=== PATIENT | female | born 2000 | race Caucasian/White ===

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

== ENCOUNTER 2024-06-16 15:22 | Outpatient (CLI) | payer SELFPAY ==
[~2024-06-16] VITALS: Ht 175.3 cm; Wt 108.9 kg
--- NOTE | 2024-06-16 16:12 | NUR ---
1530 PATIENT HERE FROM HOME WITH COMPLAINTS NOT FEELING BABIES MOVE. FHT TWIN A RIGHT LOWER QUAD. FHT 145 AND BABY VERY ACTIVE. TWIN B LEFT UPPER QUAD FHT 135 BABY VERY ACTIVE. FULL ASSESSMENT COMPLETED. PATIENT FEELS BABIES MOVE AT THIOS TIME. DR MAY CALLED AND ORDERS TO DISMISS TO HOME AFTER A 20 MIN REACTIVE STRIP. 1555 REACTIVE STRIP TIMES 2. BABIES VERY ACTIVE AND MOM IS FEELING MOVEMENT. ALL DISCHARGE INSTRUCTIONS GIVEN TO PATIETN AND MOTHER AND DISMISSED TO HOME AT THIS TIME.
== END 2024-06-16 15:55 | disposition home or self-care (01) ==
LOC: LDRO 15:22
DX: O36.8130 Decreased fetal movements, third trimester, not applicable or unspecified (principal); O30.003 Twin pregnancy, unspecified number of placenta and unspecified number of amniotic sacs, third trimester; Z3A.31 31 weeks gestation of pregnancy

== ENCOUNTER 2024-07-18 20:39 | Inpatient (IN) | payer BC ==
[2024-07-18] VITALS (11 sets, daily range): BP systolic 141–169; BP diastolic 93–107; PULSE 61–87; TEMP 99.3
[~2024-07-18] VITALS: Ht 175.3 cm; Wt 126.4 kg
[~2024-07-18 20:39] MED LIST changes: +PRENATAL TABLET PO
--- NOTE | 2024-07-18 20:50 | NUR ---
PT ARRIVED WITH COMPLAINT OF HIGH BLOOD PRESSURES AT HOME. WAS TOLD BY HER MD TO CHECK THEM AT HOME PERIODICALLY. SHE GOT HIGH READINGS THAT DID NOT COME DOWN, SO SHE CAME TO BE EVALUATED. DENIES ANY HEADACHES OR VISUAL CHANGES TODAY. NO NEW SYMPTOMS. ON ASSESSMENT, NORMAL DTR'S, NO CLONUS. TRACE EDEMA TO BILAT LOWER EXT. REPORTS NO VAGINAL BLEEDING OR LOF. MILD OCCASIONAL CRAMPING. FEEL BOTH BABIES MOVING NORMALLY.
[2024-07-18] MEDS ORDERED: LR 1,000 ML IV PRN (21:15)
[2024-07-18 22:26] LABS: COLLECTION METHOD CLEAN CATCH
[2024-07-18 22:30] LABS: BASO # 0.1 K/mm3 (0.0-0.2); BASO % 0.5 % (0.0-2.0); EOS # 0.1 K/mm3 (0.0-0.7); EOS % 1.1 % (0.0-4.0); GRAN # 9.1 K/mm3 (1.4-6.5); GRAN % 70.5 % (42.2-75.2); HEMOGLOBIN 11.6 g/dl (12.5-16.0); LYMPH # 2.6 K/mm3 (1.2-3.4); LYMPH % 19.9 % (20.0-51.0); MEAN CELL VOLUME 84 fl (80.0-100.0); MEAN CORPUSCULAR HEMOGLOBIN 29 pg (27-31); MEAN CORPUSCULAR HGB CONC 35 g/dl (33.0-37.0); MEAN PLATELET VOLUME 12.4 fl (7.4-10.4); MONO % 7.4 % (1.7-9.3); PLATELET COUNT 166 K/mm3 (130-400); RED BLOOD COUNT 3.97 M/mm3 (4.10-5.30); REDCELL DISTRIBUTION WIDTH-CV 13.2 % (11.5-14.5)
[2024-07-18 22:31] LABS: HEMATOCRIT 33.3 % (37.0-47.0)
[2024-07-18 22:33] LABS: URINE APPEARANCE CLOUDY (CLEAR/HAZY); URINE BLOOD NEGATIVE (NEGATIVE); URINE COLOR YELLOW (YELLOW); URINE GLUCOSE NEGATIVE (NEGATIVE); URINE KETONE NEGATIVE (NEGATIVE); URINE NITRATE NEGATIVE (NEGATIVE); URINE PROTEIN(semi-quant) 1+ (NEGATIVE); URINE UROBILINOGEN 0.2 E.U/dL (0.2-1.0)
[2024-07-18 22:47] LABS: ALBUMIN 2.4 g/dL (3.5-5.0); BILIRUBIN,TOTAL 0.3 mg/dL (0.2-1.2); CALCIUM 9.2 mg/dL (8.4-10.2); CREATININE, serum 0.8 mg/dL (0.57-1.11); POTASSIUM 3.9 mEq/L (3.5-4.5); TOTAL PROTEIN 5.8 g/dl (6.2-8.1)
--- NOTE | 2024-07-18 23:07 | NUR ---
MD AT BEDSIDE. ULTRASOUND. 2320-TO BR TO VOID. PT VOMITED. STATES SHE HAS NOT BEEN NAUSEATED UNTIL JUST NOW. FEELS BETTER BUT WILL CALL MD FOR BELLO.
[2024-07-18] MEDS ORDERED: hydrALAZINE 20 MG/ML 1 ML VIAL IV PRN (23:45)
[2024-07-18] MEDS ORDERED: Magnesium Sulfate 4% 50 ML IV PRN (23:45)
[2024-07-18] MEDS ORDERED: LR & Oxytocin 500 ML IV SCH (23:45)
[2024-07-18] MEDS ORDERED: LR 1,000 ML IV SCH ×2 (23:45)
[2024-07-18] MEDS ORDERED: Calcium Gluconate 1,000 MG (4.65 mEq)/10 ML VIAL IV PRN (23:45)
[2024-07-19] VITALS (73 sets, daily range): BP systolic 15–177; BP diastolic 63–118; PULSE 62–109; TEMP 98.1–100.9
[2024-07-19] MEDS ORDERED: Magnesium Sulfate 4% 500 ML IV SCH
[2024-07-19] MEDS ORDERED: Calcium Gluconate 1,000 MG (4.65 mEq)/10 ML VIAL IV PRN
--- NOTE | 2024-07-19 00:15 | NUR ---
IV STARTED IN PER Penny SÁNCHEZ, RN AFTER 2 ATTEMPTS AND 2 ATTEMPTS PER THIS RN. 0040-2ND IV PLACED PER ALEXANDER CARNEY RN IN RFA
[2024-07-19] MEDS ORDERED: Ondansetron 4 MG/2 ML VIAL IV PRN ×2 (00:30→03:30)
--- NOTE | 2024-07-19 00:55 | NUR ---
MAGNESIUM SULFATE STARTED AT 50ML/HR PER ORDER IN LFA. LR RUNNING WITH IT 25ML/HR.
[2024-07-19] MEDS ORDERED: Naloxone 0.4 MG/ML VIAL IV PRN ×2 (03:30→16:30)
[2024-07-19] MEDS ORDERED: diphenhydrAMINE 25 MG CAP PO PRN (03:30)
[2024-07-19] MEDS ORDERED: diphenhydrAMINE 50 MG/ML 1 ML VIAL IV PRN (03:30)
[2024-07-19] MEDS ORDERED: ePHEDrine 50 MG/10 ML VIAL IV PRN (03:30)
--- NOTE | 2024-07-19 03:55 | NUR ---
PT HAS MOVED TO HER RT SIDE AND IS COMFORTABLE. NOT FEELING CTX. SLEEPING OFF AND ON. DIFFICULT TO MONITOR BABY A DUE TO PT POSITION. ADJUSTING EFM
--- NOTE | 2024-07-19 04:10 | NUR ---
CONTINUING TO ADJUST EFM TO BETTER MONITOR BABY A
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
--- NOTE | 2024-07-19 05:55 | NUR ---
DIFFICULT TRACING OF CONTRACTIONS DUE TO PT POSITION. PT STILL NOT FEELING CTX. READJUSTED TOCO
--- NOTE | 2024-07-19 06:45 | NUR ---
REPORT RC'D AT 0630 AT PT BEDSIDE, ASSUMED CARE OF PT, INTRODUCED PT AND FAMILY TO THIS NURSE AND PLAN OF CARE, ASSESSMENT COMPLETED, VSS, PT ONLY FEELING OCCAS BACK PAIN AT THIS TIME, DENIES HEADACHE OR VISUAL CHANGES, VSS, PITOCIN INCREASED TO 14MU/MIN PER PUMP AT 0645.
--- NOTE | 2024-07-19 07:00 | NUR ---
DENIES CTX OR HEADACHES, HAVING BACK PAIN, REPOSTIONED WITH PILLOWS.
--- NOTE | 2024-07-19 07:40 | NUR ---
PT REPORTS FEELING SOMETHING "WET BETWEEN HER LEGS" FEELING BACK PAIN WITH CTX, SVE DONE, COMFIRMED SROM WITH CLEAR FLUID, SVE 3CM/80/-2 STATION, PT REPOSTIONED WEDGED RIGHT FOLLOWING EXAM, HUNTER ARE DONE, STARTING TO BREATH AND HAVE DISCOMFORT WITH CTX, WOULD LIKE EPIDURAL, THIS NURSE WILL CALL PHYSICIAN NOW.
--- NOTE | 2024-07-19 08:19 | NUR ---
EVANGELINA CARLISLE-ASSIGNMENT EDITOR AT BEDSIDE, DISCUSSES EPIODURAL PLACEMENT, CONSENT SIGNED, IVF BOLUS INFUSING PER ASSIGNMENT EDITOR ORDERS 500CC PER PUMP NOW, PT SITTING UP ON SIDE OF BED, EPIDURAL PLACED BY ASSIGNMENT EDITOR, SINGLE SHOT AT 0819, PULSE 99,. SA02 99%. UNABLE TO MONITOR BABIES AT THIS TIME DUE TO PT SITTING UP, PT TOLERATES PROCEDURE WELL, VS STABLE, SEE ANESTHESIA RECORD. REPOSITIONED FOLLOWING EPIDURAL WEDGED LEFT AT 0825, BABY A FHR 120'S WITH GOOD VARIABLITLY, BABY B ALSO 120'S WITH GOOD VARIABILITY, AT 0830, CTX PAIN GETTING MUCH BETTER PER PT REPORT.
[2024-07-19] MEDS ORDERED: ROPivacaine PF 0.2% 200 ML IV ONE (08:24)
--- NOTE | 2024-07-19 08:45 | NUR ---
COMFORTABLE ON LEFT SIDE, UNABLE TO FEEL CTX,
--- NOTE | 2024-07-19 09:20 | NUR ---
AT 0920, ON UNIT, VIEWS STRIP, PT STARTING TO FEEL PRESSURE IN BOTTOM WITH CTX, IN ROOM AT 0922, DISCUSSES PLAN OF CARE WITH PT, ANSWERS QUESTIONS, SVE DONE PT 4-5CM/90%, -1 STATION, NO NEW ORDERS, PT REPOSITIONED UP ON RIGHT SIDE WITH LEG IN STIRRUP.
--- NOTE | 2024-07-19 09:30 | NUR ---
PT REPOSITIONED UP HIGH ON RIGHT SIDE USING STIRRUP FOR LEFT LEG FOLLOWING EXAM, FHR MONITORS REPOSTIIONED TO GET BABES HR.
--- NOTE | 2024-07-19 09:42 | NUR ---
DTR 2+. DENIES C/O VISION CHANGES OR HEADACHE, ANTON EMPITED OF 45CC CLEAR YELLOW URINE.
--- NOTE | 2024-07-19 10:00 | NUR ---
BAG 1 MAG SULFATE INFUSED, BAG 2 HUNG PER ORDER AT 2G 50CC/HR, BETH CHARGE IN ROOM, CO-SIGN FOR MAG. PT NOT FEELING CTX, DENIES HEADACHE, COMFORTABLE WITH EPIDURAL.
--- NOTE | 2024-07-19 10:15 | NUR ---
SLEEPING WITH EPIDURAL
--- NOTE | 2024-07-19 11:15 | NUR ---
FEELING MORE PRESSURE WITH CTX, SVE 6CM/100/0 STATION, BLOODY SHOW, MORE UNCOMFORTABLE WITH CTX, POSITIONED UP ON LEFT SIDE, WITH PILLOWS AND BLANKETS, FHR REPOSTIIONED, WILL SEE IF THAT HELPS WITH CTX PAIN.
--- NOTE | 2024-07-19 11:45 | NUR ---
HAVING TO BREATH THROUGH CTX BUT LEGS ALSO FEELING NUMB AND HEAVY, LEFT MORE THAN RIGHT, EPIDURAL BOLUS BUTTON PRESSED BY PT DUE TO TENSE/HAVING TO BRETAH THROUGH CTX.
--- NOTE | 2024-07-19 12:00 | NUR ---
PITOCIN DECREASED TO 16MU/MIN DUE TO CTX COMING EVERY 1-2 MINUTES.
--- NOTE | 2024-07-19 12:15 | NUR ---
SLEEPING/SNORING ON LEFT SIDE
--- NOTE | 2024-07-19 12:30 | NUR ---
CONTINUES TO SLEEP/SNORE ON LEFT SIDE, AND SUPPORT PERSON ALSO IN RM.
--- NOTE | 2024-07-19 12:45 | NUR ---
ON UNIT, UPDATED OUTPUT HAS BEEN LESS THAN 30CC/HR, MAG LEVEL ORDERED, LAB NOTIFIED, PITOCIN INCREASED TO 18MU DUE TO CTX SPACING OUT, PT CONTINUES TO SLEEP ON LEFT SIDE.
--- NOTE | 2024-07-19 13:15 | NUR ---
IN ROOM AT 1308, VIEWS STRIP, SVE DONE, PT COMPLETE, +1 STATION, WILL NOTIFY CHARGE NURSE, ANABEL, PARK RANGER TO SET UP FOR DELIVERY IN OR.
--- NOTE | 2024-07-19 13:30 | NUR ---
AT 1330, SLOANE CRUZ'D FOR PT TO PUSH IN OR, 10CC SALINE WITHRAWN, HUNTER CARE DONE, PT TOLERTED WELL, AT 1335 EFM OFF, PT MOVED TO OR FOR DELIVERY OF TWINS WITH THIS NURSE, SAMMIE ORTIZ CHARGE NURSE AND ANABEL-RADHA.
--- NOTE | 2024-07-19 13:45 | NUR ---
AT 1343 TO OR PER BED, AWAKE AND COMFORTABLE WITH CTX, TRANSFERRED OVER TO OR TABLE WITH ROLLER BOARD BY THIS NURSE, MARTHA AND SAMMIE ORTIZ-CHARGE NURSE, , AND FROYLAN, FHR MONITOR ON, NOTED DATE AT TIME TO BE OCT 20, 2023 AT 0335, CURRENT TIME OF 1343 NOTED ON STRIP, ALSO AWARE OF DISCREPANCY OF TIME ON FHR OR MONITOR. LAB CALLED WITH PT MAG LEVEL OF 9.9, MAG DECREASED TO 1G PER PUMP PER VERBAL ORDER OF AT 1344. PT POSITIONED UP IN STIRRUPS AND INSTURCTED ON PUSHING WITH CTX, [facility]-RN NURSERY NURSE ALSO IN ROOM FOR DELIVERY OF BABIES. SEE ANESTHESIA RECORD OF VS DURING TIME IN OR BEGINNING AT 1345.
--- NOTE | 2024-07-19 14:00 | NUR ---
AT 1351 PT INSTRUCTED ON PUSHING WITH CTX, GUIDES PUSHING WITH EXAM, B.CRINGAN- CHARGE NURSE HOLDING LEFT LEG WHILE THIS NURSE HELPS WIHT RIGHT LEG AND INSTRUCTS PT ON PUSHING, FOB AT HEAD OF BED ALSO OFFERING SUPPORT. AT 1353, PITOCIN INCREASED TO 20MU PER ORDER OF DR. MAY, R/T PT CTX NOT FEELING FIRM WITH PUSHING, PT PUSHING WITH GOOD EFFORT. AT 1401, DIFFICULTY TRACING BABY B, DR. BROWN PERFOMS BEDSIDE ULTRASOUND TO FIND BABY HR, FHR 120'S WITH GOOD VARIABILITY. SEE ANESTHESIA RECORD FOR PT VS.
--- NOTE | 2024-07-19 14:15 | NUR ---
PT CONTINUES TO PUSH WITH GOOD EFFORT WITH CTX.
--- NOTE | 2024-07-19 14:30 | NUR ---
CONTINUES TO PUSH WIHT PT, PITOCIN INCREASED TO 22MU/MIN PER ORDER AT 1427 R/T CTX SPACING TO 3 MIN APART AND FUNDUS PALPATED MODERATE WITH CTX.
--- NOTE | 2024-07-19 14:52 | NUR ---
EMPTIES BLADDER WITH RED RICHARD AT 1446, PT VERBALIZES SHE WOULD LIKE VACUUM ASSISTED DELIVERY R/T MATERNAL EXHAUSTION, VACUUM ON TO ASSIST WITH DELIVERY AT 1449 BY , PT PUSHING WELL WITH CTX, VACUUM ASSISTED DELIVERY AT 1452 OF VIABLE MALE WITH NUCHAL CORD X 1 WITH 8/9/9 APGARS BY WITH ALSO IN OR OVER SECOND DEGREE LACERATION, VSS, SEE ANESTHESIA RECORD.
--- NOTE | 2024-07-19 15:00 | NUR ---
SEE ANESTHESIA RECORD FOR MATERNAL VSS, SEE LABOR AND DELIVERY SUMMARY NOTE, PT PUSHING WELL AT [address]GOODPASTURE HUYNH GUIDED PUSHING, PT IS FATIGUED, OFFERED ICE CHIPS AND COLD WASH CLOTH FOR HEAD BUT PUSHING WITH GOOD EFFORT, AT HEAD OF BED OFFERING SUPPORT.
--- NOTE | 2024-07-19 15:15 | NUR ---
PT PUSHING WITH CTX AT 1505 FOLLOWING DELIVERY OF BABY A, CONFIRMS BABE VTX, FHR 100'S-120'S WITH GOOD VARIBALITY, FHR DECREASED TO 90'S 100'S AT CTX END, RECOMMENDS VACUUM ASSIST DELIVERY AND PT AGREES WITH THIS PLAN, VACUUM ON AT 1513 BY , ALSO IN OR FOR DELIVERY, PT PUSHING WELL WITH CTX, VACUUM ASSISTED DELIVERY FOLLOWING 2 PUSHES OF VIABLE M/C WITH 8-9-9 APGARS OVER SECOND DEGREE LACERATION AT 1515, PITOCIN OFF, BABE TO WARMER WITH NURSERY NURSE- JEAN RUSSELL-RN.
--- NOTE | 2024-07-19 15:30 | NUR ---
SPONTANEOUS PLACENTA AT 1522, PITOCIN INFUSING AT 333MU/MIN PER PUMP, FINISHES REPAIR OF SECOND DEGREE LACERATION, BABES ON MOMS CHEST X 2 WITH POSITIVE BONDING, DAD AT HEAD OF BED, CYTOTEC AT 1536 RECTAL BY FOLLOWING REPAIR, UTERUS MASSAGED FIRM.
[2024-07-19] MEDS ORDERED: miSOPROStol 200 MCG TAB PO ONE (15:36)
--- NOTE | 2024-07-19 16:00 | NUR ---
ANTON PLACED IN OR AT 1550, 10CC BALLOON INFLATED, AND TO DEPENDANT DRAINAGE, FUNDUS MASSSAGED FIRM, PT MOVED OVER TO LDR BED FROM OR TABLE WITH ASSIST, FREE FLOW BLEEDING ON PAD WITH MOVE, MASSAGED FIRM, ABLE TO MOVE WELL, DENIES PAIN, WARM BLANKET FOR SHAKES, TO LDR#6 PER BED BY THIS NURSE, ANABEL AND SAMMIE SANCHEZ, RECOVERY VS INITATED IN ROOM AT 1600, MAG LEVEL ORDERED BY , ICE WATER GIVEN, SCD'S ON, IV'S PATENT AND INFUSING. DAD IN NURSERY WITH BABES AT THIS TIME.
[2024-07-19] MEDS ORDERED: Acetaminophen 500 MG TAB PO SCH (16:30)
[2024-07-19] MEDS ORDERED: Phenylephrine/Mineral Oil/Petrolatum 57 GM TUBE RC PRN (16:30)
[2024-07-19] MEDS ORDERED: Witch Hazel 50% Pads Bulk TUB TP PRN (16:30)
[2024-07-19] MEDS ORDERED: Ibuprofen 800 MG TAB PO SCH (16:30)
[2024-07-19] MEDS ORDERED: Mag/Al Hydrox/Simeth Susp 30 ML CUP PO PRN (16:30)
[2024-07-19] MEDS ORDERED: Measles/Mumps/Rubella Virus Vaccine Live w Diluent 0.5 ML VIAL SQ SCH (16:30)
[2024-07-19] MEDS ORDERED: Magnes Hydrox (MOM) 80 MG/ML 30 ML CUP PO PRN (16:30)
[2024-07-19] MEDS ORDERED: Loratadine 10 MG TAB PO PRN (16:30)
--- NOTE | 2024-07-19 16:30 | NUR ---
MOM HOLDS BABES SKIN TO SKIN, FAMILY VISITING, LIMITED TO 2 VISITORS, DENIES PAIN, VSS.
[2024-07-19] MEDS ORDERED: Sennosides/Docusate 8.6-50 MG TAB PO SCH (17:00)
--- NOTE | 2024-07-19 17:00 | NUR ---
BOOGIE RUBIN TO [facility] FOR TO ASSESS, AT 1710 IN AT BEDSIDE TALKING WITH PT AND FAMILY REGARDING PLAN OF CARE, QUESTIONS ADDRESSED.
--- NOTE | 2024-07-19 18:00 | NUR ---
at 1750, vss, pad changed and rachel care done, 140cc of blood weighed on pad, free flow noted while changing pad, uterus massaged, no clots noted, more bleeding noted on fresh pad. B.CRingan-charge nurse called to assess fundus, fundus also massaged with no clots, but free flow when pt moves bottom. Pt requests warm blanket, given, orat temp at this time is 100.9. Called -see physician notification note, updated on temp 100.9, no orders at this time.
--- NOTE | 2024-07-19 18:05 | NUR ---
at 1807, MARTHA AND ON UNIT, WILL PLAN TO TAKE PT BACK TO OR TO ASSESS CAUSE OF BLEEDING, PT AND FAMILY UPDATED ON THIS PLAN. AT 1815, AT BEDSIDE TO DISCUSS PLAN TO TRANSFER BOOGIE TO [facility] FOR RESPIRATORY ASSISTANCE NEEDS, MOM TEARFUL, QUESITONS ADDRESSED. AT 1820, BEDSIDE REPORT GIVEN TO ELLA.
--- NOTE | 2024-07-19 18:30 | NUR ---
Report received from Angel ZAMUDIO. in room to explained having to go to OR to evaluate bleeding further. Pt tearful and questions answered by provider. 1850: Pt wheeled back to OR. See 's dictation. 2100: Pt in room from PACU. Alert and oriented. Family and friends at bedside. explained procedure to pt's and friend. Magnesium protocol continued.
[2024-07-19] MEDS ORDERED: Lidocaine PF 2% (20 MG/ML) 5 ML VIAL ONE (18:34)
[2024-07-19] MEDS ORDERED: fentaNYL 50 MCG/ML 2 ML VIAL ONE ×4 (18:34→20:21)
[2024-07-19] MEDS ORDERED: NS 10 ML IV ONE (19:03)
[2024-07-19] MEDS ORDERED: LR 1,000 ML IV ONE (19:07)
[2024-07-19] MEDS ORDERED: Tranexamic Acid 1,000 MG/10 ML VIAL ONE (19:17)
[2024-07-19] MEDS ORDERED: Labetalol 100 MG/20 ML Multi-Dose VIAL ONE (19:58)
[2024-07-19] MEDS ORDERED: Estradiol 0.01% Vaginal Cream 42.5 G TUBE VG ONE (20:08)
[2024-07-19] MEDS ORDERED: traZODone 50 MG TAB PO PRN (21:00)
[2024-07-19] MEDS ORDERED: ceFAZolin 2 G in Water For Injection,Sterile 20 ML IV ONE (21:30)
[2024-07-19] MEDS ORDERED: oxyCODONE 5 MG TAB PO PRN (21:30)
[2024-07-19 22:12] LABS: HEMOGLOBIN 10.7 g/dl (12.5-16.0); MEAN CELL VOLUME 85 fl (80.0-100.0); MEAN CORPUSCULAR HEMOGLOBIN 30 pg (27-31); MEAN CORPUSCULAR HGB CONC 35 g/dl (33.0-37.0); MEAN PLATELET VOLUME 12.5 fl (7.4-10.4); PLATELET COUNT 154 K/mm3 (130-400); REDCELL DISTRIBUTION WIDTH-CV 13.2 % (11.5-14.5)
[2024-07-19 22:22] LABS: HEMATOCRIT 30.5 % (37.0-47.0)
[2024-07-19 23:11] LABS: INR 0.9 (0.8-3.0); PROTHROMBIN TIME 9.8 SECONDS (9.7-12.8)
[2024-07-19 23:13] LABS: PARTIAL THROMBOPLASTIN TIME 25.9 SECONDS (26.0-37.0)
[2024-07-20] VITALS (25 sets, daily range): BP systolic 114–159; BP diastolic 60–91; PULSE 71–90; TEMP 97.5–98.2
--- NOTE | 2024-07-20 | NUR ---
FUNDAL HEIGHT CHECKED. AT UMBILICUS 0400: FUNDAL HEIGHT CHECKED AND AT UMBILICUS
--- NOTE | 2024-07-20 08:30 | NUR ---
0825 ROLES AT BEDSIDE. DISCUSSES POC WITH PT. PT VERBALIZES UNDERSTANDING AND AGREEMENT. 0830VORB PER DR BRIGGS TO SHUT OFF MAGENISUM SULFATE. MAG SHUT OFF AT THIS TIME PER THIS RN. RIGHT FOREARM IV TO SALINE LOCK. DR BRIGGS TELLS PT SHE CAN TRY A SNACK AT ABOUT 0930 AFTER MAG IS OUT OF HER SYSTEM. PT VITAL SIGNS STABLE. VORB PER ROLES FOR CBC ORDER
--- NOTE | 2024-07-20 08:50 | NUR ---
THIS RN AND ROLES AT BEDSIDE. DR BRIGGS REMOVES VAGINAL PACKING AT THIS TIME. MINIMAL BLOOD NOTED ON PACKING. DR BRIGGS REMOVES 60 ML FROM THE ERIBERTO BALLOON. PT TOLERATED WELL. PT VITAL SIGNS STABLE.
[2024-07-20 09:25] LABS: BASO # 0.1 K/mm3 (0.0-0.2); BASO % 0.4 % (0.0-2.0); EOS % 0.2 % (0.0-4.0); GRAN # 13.4 K/mm3 (1.4-6.5); LYMPH # 1.9 K/mm3 (1.2-3.4); LYMPH % 11.4 % (20.0-51.0); MEAN CELL VOLUME 84 fl (80.0-100.0); MEAN CORPUSCULAR HGB CONC 35 g/dl (33.0-37.0); MONO # 1.1 K/mm3 (0.1-0.6); MONO % 6.5 % (1.7-9.3); PLATELET COUNT 154 K/mm3 (130-400); RED BLOOD COUNT 3.24 M/mm3 (4.10-5.30); REDCELL DISTRIBUTION WIDTH-CV 13.5 % (11.5-14.5)
[2024-07-20 09:29] LABS: HEMATOCRIT 27.3 % (37.0-47.0); HEMOGLOBIN 9.5 g/dl (12.5-16.0); MEAN CORPUSCULAR HEMOGLOBIN 29 pg (27-31)
--- NOTE | 2024-07-20 09:30 | NUR ---
PT EATS A SNACK AT THIS TIME. NO NAUSEA/VOMITING NOTED. PT TOLERATES WELL.
--- NOTE | 2024-07-20 10:40 | NUR ---
DR BRIGGS AND THIS RN AT BEDSIDE. DR BRIGGS REMOVES AN ADDITIONAL 60 ML FROM ERIBERTO BALLOON. PT TOLERATES WELL.
--- NOTE | 2024-07-20 10:50 | NUR ---
PT EPIDURAL CATHETER REMOVED AT THIS TIME. NO DRAINAGE PRESENT AT EPIDURAL SITE. PT TOLERATED WELL
--- NOTE | 2024-07-20 12:35 | NUR ---
DR BRIGGS AND THIS RN AT BEDSIDE. DR BRIGGS REMOVES APPROXIMATELY 110 ML FROM ERIBERTO BALLOON. DR BRIGGS REMOVES ERIBERTO BALLOON FROM UTERUS. MINIMAL BLEEDING NOTED. PT TOLERATED WELL.
[2024-07-20] MEDS ORDERED: IBU800 M1 PO (12:45)
--- NOTE | 2024-07-20 12:50 | NUR ---
THIS RN AMBULATES WITH PT AROUND THE UNIT. PT GAIT IS STEADY. PT TOLERATES WELL.
--- NOTE | 2024-07-20 13:15 | NUR ---
1315PT AMBULATE TO BATHROOM. ANTON REMOVED AT THIS TIME. PERICARE PERFORMED PER PT. MINIMAL BLEEDING NOTED ON PAD.
--- NOTE | 2024-07-20 15:00 | NUR ---
1450PT UP TO BATHROOM. PT VOIDED ON FLOOR. 1455RIGHT FOREARM IV REMOVED AT THIS TIME. 1500PT SHOWERS AT THIS TIME. PT TOLERATED WELL.
[2024-07-20] MEDS ORDERED: ZOFRAN ODT4 MG PO (15:09)
[2024-07-20] MEDS ORDERED: ROXICODONE 55 MG/TAB PO (15:09)
[2024-07-20] MEDS ORDERED: NIFEdipine XL 30 MG TAB PO SCH (16:15)
--- NOTE | 2024-07-20 17:00 | NUR ---
1625PT DISCUSSES POC WITH PT ABOUT DISCHARGE. PT VERBALIZES UNDERSTANDING. 1635PROCARDIA GIVEN AT THIS TIME. 1650DISCHARGE INSTRUCTIONS GIVEN. QUESTIONS ASKED AND ANSWERED. PT VERBALIZES UNDERSTANDING. 1700PT AND FRIEND AMBULATORY OFF UNIT FOR DESTINATION HOME/[facility] TO SEE BABIES. DANIEL DIRECTOR OF CHANNEL MARKETING ACCOMPANIES PT OFF UNIT.
== END 2024-07-20 17:00 | disposition home or self-care (01) | DRG 542 ==
LOC: LDRO 20:39 → LDR 21:13
PROVIDERS: Obstetrics & Gynecology; Student in an Organized Health Care Education/Training Program; ADMIT Obstetrics & Gynecology
PROC: 10D07Z6 Extraction of Products of Conception, Vacuum, Via Natural or Artificial Opening (ICD-10-PCS; principal; 2024-07-19)
PROC: 10D07Z6 Extraction of Products of Conception, Vacuum, Via Natural or Artificial Opening (ICD-10-PCS; 2024-07-19)
PROC: 0KQM0ZZ Repair Perineum Muscle, Open Approach (ICD-10-PCS; 2024-07-19)
PROC: 3E033VJ Introduction of Other Hormone into Peripheral Vein, Percutaneous Approach (ICD-10-PCS; 2024-07-19)
PROC: 10907ZC Drainage of Amniotic Fluid, Therapeutic from Products of Conception, Via Natural or Artificial Opening (ICD-10-PCS; 2024-07-19)
PROC: 10D17ZZ Extraction of Products of Conception, Retained, Via Natural or Artificial Opening (ICD-10-PCS; 2024-07-19)
PROC: 0UQC7ZZ Repair Cervix, Via Natural or Artificial Opening (ICD-10-PCS; 2024-07-19)
PROC: 0UQG7ZZ Repair Vagina, Via Natural or Artificial Opening (ICD-10-PCS; 2024-07-19)
PROC: 0W3R7ZZ Control Bleeding in Genitourinary Tract, Via Natural or Artificial Opening (ICD-10-PCS; 2024-07-19)
DX: O14.14 Severe pre-eclampsia complicating childbirth (principal); Z37.2 Twins, both liveborn; O30.043 Twin pregnancy, dichorionic/diamniotic, third trimester; O72.1 Other immediate postpartum hemorrhage; O70.1 Second degree perineal laceration during delivery; O31.8X31 Other complications specific to multiple gestation, third trimester, fetus 1; O32.6XX1 Maternal care for compound presentation, fetus 1; O75.81 Maternal exhaustion complicating labor and delivery; O99.214 Obesity complicating childbirth; O69.81X1 Labor and delivery complicated by cord around neck, without compression, fetus 1; Z3A.36 36 weeks gestation of pregnancy
CPT/HCPCS: J0688; J1920; J2405; J2590; J2704; J2795; J3010; J3475; J7120